=== PATIENT | male | born 1955 | race Caucasian/White ===

== ENCOUNTER → 2017-12-12 | Day surgery (SDC) | payer OTHER ==
--- NOTE | 2017-12-11 14:49 | MH ---
cc: GAMA OCONNOR DATE OF ADMISSION 12/12/2017 HISTORY OF PRESENT ILLNESS A 62-year-old man with chronic otitis media for bilateral myringotomy and tube placement. PAST MEDICAL HISTORY Unremarkable. PAST SURGICAL HISTORY Unremarkable other than previous tubes. REVIEW OF SYSTEMS, FAMILY HISTORY, SOCIAL HISTORY Unremarkable. PHYSICAL EXAMINATION GENERAL: A well-appearing patient in no acute distress noted. HEENT: Exam reveals fluid behind each eardrum. LUNGS: Clear. HEART: Regular rate and rhythm. ABDOMEN: Soft and nontender. EXTREMITIES: Without cyanosis, clubbing or edema. NEUROLOGIC: Alert, oriented, nonfocal neurologic exam. IMPRESSION AND PLAN Patient with chronic otitis media for tubes. The patient was instructed as to the method of surgery and complications including early or late extrusion of tubes, tympanic membrane perforation, conductive or sensorineural hearing loss. The patient appeared to agree, accept and understand the above-mentioned risks and benefits. No guarantees or warranties regarding the outcome were given. Will therefore proceed with surgery. MD MARINA Aparicio/BT /2:27 PM /2:32 PM
[~2017-12-12] VITALS: Ht 177.8 cm; Wt 98.1 kg
[~2017-12-12] MED LIST: ACETAMINOPHEN/HYDROcodone 325 MG/7.5 MG TAB PO PRN; CHLORHEXIDINE GLUCONATE 2 % 1 PACK (2 CLOTHS) TOPICAL PRN; DEXAMETHASONE SOD PHOS 4 MG/ML VIAL IV ONE; DO NOT ADM ANY ANTICOAGULANT DRUGS PRN; LACTATED RINGER'S 1000 ML IV PRN; LIDOCAINE HCL 1% PF 5 ML SYRINGE OTHER ONE; METO25TA3 PO; METOPROLOL TARTRATE 25 MG TAB PO PRN; MORPHINE SULFATE 2 MG/ML INJ IV PRN; NOVO7030P2 SQ; OFLOXACIN 0.3% OPTH SOLN 5 ML BTL ONE; ONDANSETRON HCL 4 MG/2 ML VIAL IV ONE; ONDANSETRON HCL 4 MG/2 ML VIAL IV PUSH PRN; PHENYLEPH/NS 1000 MCG/10 ML SYR IV ONE; POVIDONE IODINE 5% (ANTISEPSIS KIT) 4 APPLICATIONS EACH NARE PRN; PROPOFOL 200 MG/20 ML AMP IV ONE; SODIUM CHLORID 0.9% 500 ML IV PRN; WARF-18 PO
[2017-12-12 08:24] LABS: INTERNATIONAL NORMALIZED RATIO 2.5 RATIO; PROTHROMBIN TIME - PATIENT 25.7 SEC (9.8-11.6)
[2017-12-12 10:01] VITALS: BP 104/72; PULSE 85; RESP 18; TEMP 97.6; O2SAT 98
--- NOTE | 2017-12-12 13:43 | MP ---
cc: GAMA OCONNOR DATE OF SURGERY 12/12/2017 PREOPERATIVE DIAGNOSIS Chronic otitis media POSTOPERATIVE DIAGNOSIS Chronic otitis media PROCEDURE Bilateral myringotomy and T-tube placement ANESTHESIA General anesthesia ESTIMATED BLOOD LOSS Minimal COMPLICATIONS None OPERATING SURGEON Dr. Oconnor OPERATION FOLLOWS Prepped and draped in the usual fashion. Anterior-inferior radial myringotomy incision made left side. Fluid suctioned from the middle ear cavity. Tympanostomy tube placed in good position under microscopic visualization along with Oflox. A similar procedure on the opposite side, anterior-inferior radial myringotomy incision made, fluid suctioned from the middle ear cavity. Tympanostomy T-tube placed in good position under microscopic visualization along Oflox. The patient tolerated the procedure well. MD MARINA Aparicio/ARLENE /9:08 AM /1:26 PM
--- NOTE | 2017-12-12 14:49 | EKG ---
Date Performed: 12/12/2017 Time Performed: 07:04:22 PTAGE: 62 years EKG: ATRIAL FLUTTER/TACHYCARDIA WITH RAPID VENTRICULAR RESPONSE RIGHT BUNDLE BRANCH BLOCK LEFT A NTERIOR FASCICULAR BLOCK POSSIBLE ANTERIOR MYOCARDIAL INFARCTION , PROBABLY OLD ABNORMAL ECG PREVIOUS TRACING : 12/22/2015 06.45 Since the prior tracing, there has been no significant damon DOCTOR: Abiodun Hayes Interpretating Date/Time 12/12/2017 14:42:20
== END | disposition home or self-care (01) ==
LOC: HSDC 06:18
PROVIDERS: ATTEND Specialist
DX: H66.93 Otitis media, unspecified, bilateral (principal); E11.22 Type 2 diabetes mellitus with diabetic chronic kidney disease; I12.0 Hypertensive chronic kidney disease with stage 5 chronic kidney disease or end stage renal disease; N18.6 End stage renal disease; I48.91 Unspecified atrial fibrillation; Z99.2 Dependence on renal dialysis
CPT/HCPCS: 00126; 69436; 82948; 85610; 85730; 93005; J1100; J2370; J2405